=== PATIENT | male | born 1965 | race Caucasian/White ===

== ENCOUNTER 2016-09-05 09:41 | Outpatient (CLI) | payer OTHER ==
--- NOTE | 2016-09-05 20:11 | DIAGNOSTIC IMAGING REPORT ---
PROCEDURE: MR LOWER EXT JOINT WO CONT-RT INDICATION: PAIN IN RT ANKLE AND JOINTS OF RIGHT FOOT, initial encounter TECHNIQUE: T1 and STIR sagittal, axial, coronal and coronal-oblique images. COMPARISON: Right ankle x-ray 02/15/2016 FINDINGS: High-grade partial tear of the Achilles tendon which appears chronic, with mild peritendinitis. Normal plantar fascia. Old avulsion fracture of the medial malleolus. Normal sinus tarsi. Mild degenerative changes of the tarsal and first MTP joints. There is moderate soft tissue swelling medially and laterally. Torn anterior talofibular and calcaneofibular ligaments. Normal tibiofibular, posterior talofibular and deltoid ligaments. The peroneus brevis tendon has a half [place] configuration in cross section suggestive of a tear. Peroneus longus, flexor hallucis longus, posterior tibial and flexor digitorum longus tendons are intact. Extensor tendons are intact . IMPRESSION: 1. 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 Torn anterior talofibular and calcaneofibular ligaments 3. Findings suggestive of a peroneus brevis tendon tear 4. Old avulsion fracture of the medial malleolus 5. 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
== END 2016-09-05 23:00 ==
LOC: MRI SRH 09:41
DX: S86.011A Strain of right Achilles tendon, initial encounter (principal); M76.61 Achilles tendinitis, right leg; S93.411A Sprain of calcaneofibular ligament of right ankle, initial encounter; S93.491A Sprain of other ligament of right ankle, initial encounter; M19.071 Primary osteoarthritis, right ankle and foot; S82.51XS Displaced fracture of medial malleolus of right tibia, sequela